=== PATIENT | male | born 1950 | race Caucasian/White ===

== ENCOUNTER → 2018-07-01 | Outpatient (CLI) | payer BC, OTHER | LOC: FIMAGING 07:22 | PROVIDERS: ATTEND Orthopaedic Surgery | DX: Z01.818 Encounter for other preprocedural examination (principal); M16.11 Unilateral primary osteoarthritis, right hip ==

== ENCOUNTER 2018-07-20 10:49 | Inpatient (IN) | payer BC, OTHER ==
--- NOTE | 2018-07-20 06:38 | PDHPUP ---
History & Physical Update H&P update statement: This history and physical update is based on an assessment of the patient which was completed after admission or registration (within 24 hours), but prior to the surgery/procedure. H&P update: no change in patient's condition since H&P completed
--- NOTE | 2018-07-20 06:38 | PDIAF ---
- Diagnosis Diagnosis: right hip djd Code Status: Full Code - Medication Management Discharge Medications: Medications to Continue on Transfer Aspirin [Aspirin 81mg (*)] 81 mg PO DAILY 06/26/18 [Last Taken Unknown] Cholecalciferol Vit D3 [Vitamin D3 2000 units tab (OTC)] 2,000 units PO DAILY [Last Taken Unknown] Herbals/Supplements -Info Only 1 ea PO DAILY 06/26/18 [Last Taken Unknown] Multivitamins [Multivitamin (*)] 1 each PO DAILY 06/26/18 [Last Taken Unknown] Olmesartan/Hydrochlorothiazide [Benicar Hct 40-12.5 mg Tablet] 1 each PO DAILY 06/26/18 [Last Taken Unknown] [place]-3 Fatty Acids [Fish Oil 1000 mg (*)] 2,000 mg PO BID 06/26/18 [Last Taken Unknown] Sertraline HCl [Zoloft 100mg (*)] 100 mg PO DAILY 06/26/18 [Last Taken Unknown] clonazePAM [Klonopin (*)] 0.5 mg PO HS 06/26/18 [Last Taken Unknown] Discharge Medications: Refer to the Discharge Home Medication list for PRN reason. - Orders Services needed: Home Care, Physical Therapy Home Care Face to Face: I certify that this patient was under my care and that I had the required [id number] encounter meeting the encounter requirements on the discharge day. My findings support the fact that the patient is homebound as defined in Home Care Face to Face Continued: CMS Chapter 7 Medicare Benefits Manual 30.1.1 , The condition of the patient is such that there exists a normal inability to leave home and consequently, leaving home would require a considerable and taxing effort. Diet Recommendation: no restrictions on diet Diet Texture: Regular Texture Diet Additional Instructions: TOTAL JOINT ARTHROPLASTY DISCHARGE INSTRUCTIONS 1. Your surgeon follows the [facility] protocol for reducing your risk of DVT (blood clots) following surgery. Medication will be ordered to prevent blood clots. A sudden increase in calf pain and/or swelling could indicate a blood clot in your leg. If this occurs, please call your surgeon or his/her assistant operations manager. An ultrasound of the leg may be necessary to diagnose a blood clot. If you have conditions that make you a higher risk for blood clots, your surgeon may use more aggressive ways to prevent them. Notify your surgeon if you think you are a high risk for blood clots. 2. Wear your white surgical stockings (SUNNY hose) for 2 weeks. This decreases your swelling and may help prevent blood clots. It is ok to remove SUNNY hose at night time to give your legs a break. 3. Swelling and bruising in the surgical leg is common. If you feel that it is excessive, please notify your surgeon. 4. Elevate your surgical leg with the ankle above the hip several times every day. Please keep the leg straight when you elevate by putting pillows under your foot. Do not put pillows under your knee. This will make being able to fully straighten more difficult. This is uncomfortable, but try to do it as much as possible. 5. For total knee replacements use compressive wrap on your knee for 3-5 days after surgery, then you can discontinue it. 6. Use a walker or crutches for 1-2 weeks. Progress your weight-bearing as tolerated. You may start to use a cane when you feel stable and safe. 7. You will receive physical therapy instructions in the hospital. Continue those exercises at home. There are additional exercises in the total joint booklet you were given before surgery. Outpatient physical therapy will begin 7- 10 days after surgery. Please schedule this in advance. 8. Use ice on your knee at least 3-5 times every day for 30 minutes. This helps reduce pain and swelling. Also use it at night before falling asleep. 9. Leave your surgical dressing in place for 2 weeks. Your dressing is water resistant, but not waterproof. Cover it with Saran Wrap or Dfbid-n-Ftjo before showering. You may shower as soon as you feel safe entering a shower. If you notice bleeding from your incision 2 or 3 days after surgery, please notify your surgeon. 10. Due to narcotics, decreased activity and altered diet, most patients experience constipation after surgery. Use [id number]-[id number] stool softeners while you are on narcotics. 11. You may drive a car when you are comfortable bearing weight, have good muscular control of your leg and are off narcotics. This usually occurs 2-4 weeks after surgery, depending on which leg was operated on. 12. If there are questions not addressed here, please refer the [facility] book given for more information. If you still have questions, please contact your surgeon s office. 13. If you have a life-threatening emergency, please call 911 and go to the emergency room immediately. For non-life threatening emergencies, please call your physicians office for advice before going to the emergency room. - Follow Up Care Current Providers and Referrals: Joel Crum [Primary Care Provider] - Josué Frausto MD [Medical Doctor] -
[~2018-07-20 10:49] MED LIST: ROPIVACAINE 0.2% 80 MG, EPINEPHrine 0.2 MG, KETOROLAC TROMETHAMINE 30 MG, morphINE 10 M... IU ONE; TRANEXAMIC ACID 1,000 MG in NS 100 ML IV ONE; TRANEXAMIC ACID 2,000 MG in NS 100 ML IV ONE
[2018-07-20] MEDS ORDERED: ceFAZolin 2 GM/DEXTROSE 100 ML IV ONE (11:00)
[2018-07-20] MEDS ORDERED: LIDOCAINE 1% 2 ML INJ ID PRN (11:00)
[2018-07-20] MEDS ORDERED: FAMOTIDINE 20 MG TAB PO ONE (11:00)
[2018-07-20] MEDS ORDERED: LR 1,000 ML IV ONE (11:00)
[2018-07-20] MEDS ORDERED: ACETAMINOPHEN 325 MG TAB PO ONE (11:00)
[2018-07-20] MEDS ORDERED: PROPOFOL/EMULSION 500 MG/50 ML BOTTLE IV ONE ×2 (11:18→13:49)
[2018-07-20] MEDS ORDERED: fentaNYL 100 MCG/2 ML INJ ONE (11:18)
[2018-07-20] MEDS ORDERED: DEXAMETHASONE 4 MG/ML VIAL ONE (11:18)
[2018-07-20] MEDS ORDERED: PHENYLEPHRINE HCL 100 MCG/ML SYR ONE (11:18)
[2018-07-20] MEDS ORDERED: LIDOCAINE 2% 100 MG/5 ML SYR ONE (11:18)
[2018-07-20] MEDS ORDERED: ONDANSETRON 4 MG/2 ML VIAL ONE (11:18)
[2018-07-20] MEDS ORDERED: MIDAZOLAM 2 MG/2 ML VIAL ONE (11:18)
[2018-07-20] MEDS ORDERED: ceFAZolin 1 GM/5 ML SYR ONE ×2 (12:01→13:23)
[2018-07-20] MEDS ORDERED: BUPIVACAINE/DEXTROSE 7.5MG/ML 2 ML SPINAL AMP SP ONE (12:59)
--- NOTE | 2018-07-20 13:42 | PDANEPAE ---
ANE Past Medical History - Cardiovascular History Hx Hypertension: Yes Hx Arrhythmias: No Hx Chest Pain: No Hx Coronary Artery / Peripheral Vascular Disease: No Hx CHF / Valvular Disease: No Hx Palpitations: No Cardiovascular History Comment: pcp monitors bp medications - Pulmonary History Hx COPD: No Hx Asthma/Reactive Airway Disease: No Hx Recent Upper Respiratory Infection: No Hx Oxygen in Use at Home: No Hx Sleep Apnea: No Sleep Apnea Screening Result - Last Documented: Positive Pulmonary History Comment: giselle triggers. seasonal allergies - Neurologic History Hx Cerebrovascular Accident: No Hx Seizures: No Hx Dementia: No - Endocrine History Hx Diabetes: No Endocrine History Comment: hx of partial thyroidectomy d/t nodules started as full thyroidectomy. 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 lower partial plate - Chronic Pain History Chronic Pain: Yes (bilateral hips, lower back) - Surgical History Prior Surgeries: bilateral knee scopes. bilateral shoulder scopes. appy. partial thyroidectomy ANE Review of Systems Review of Systems: - Exercise capacity METS (RN): 4 METS ANE Patient History - Allergies Allergies/Adverse Reactions: lisinopril Allergy (Verified 07/01/18 12:41) coughs head off - Home Medications Home Medications: Aspirin [Aspirin 81mg (*)] 81 mg PO DAILY 06/26/18 [Last Taken 07/13/18] Cholecalciferol Vit D3 [Vitamin D3 2000 units tab (OTC)] 2,000 units PO DAILY [Last Taken 07/13/18] Herbals/Supplements -Info Only 1 ea PO DAILY 06/26/18 [Last Taken 07/13/18] Multivitamins [Multivitamin (*)] 1 each PO DAILY 06/26/18 [Last Taken 07/13/18] Olmesartan/Hydrochlorothiazide [Benicar Hct 40-12.5 mg Tablet] 1 each PO DAILY 06/26/18 [Last Taken 07/13/18] [place]-3 Fatty Acids [Fish Oil 1000 mg (*)] 2,000 mg PO BID 06/26/18 [Last Taken 07/13/18] Sertraline HCl [Zoloft 100mg (*)] 100 mg PO DAILY 06/26/18 [Last Taken 07/20/18] clonazePAM [Klonopin (*)] 0.5 mg PO HS 06/26/18 [Last Taken 07/13/18] - NPO status NPO Since - Liquids (Date): 07/20/18 NPO Since - Liquids (Time): 08:00 NPO Since - Solids (Date): 07/19/18 NPO Since - Solids (Time): 22:00 - Smoking Hx Smoking Status: Former smoker - Family Anes Hx Family Hx Anesthesia Complications: none ANE Labs/Vital Signs - Vital Signs Blood Pressure: 148/99 Heart Rate: 79 Respiratory Rate: 18 O2 Sat (%): 96 Height: 180.34 cm Weight: 102.058 kg ANE Physical Exam - Airway Neck exam: FROM Mallampati Score: Class 1 Mouth exam: normal dental/mouth exam - Pulmonary Pulmonary: no respiratory distress - Cardiovascular Cardiovascular: regular rate and rhythym, systolic murmur (I/IV and pt has had it for a long time) - ASA Status ASA Status: III ANE Anesthesia Plan Anesthesia Plan: MAC, spinal
[2018-07-20] MEDS ORDERED: NALOXONE HCL 0.4 MG/ML INJ IVP PRN (13:43)
[2018-07-20] MEDS ORDERED: LABETALOL HCL 5 MG/ML 20 ML MDV IVP PRN (13:43)
[2018-07-20] MEDS ORDERED: NS 500 ML IV PRN (13:43)
[2018-07-20] MEDS ORDERED: fentaNYL 100 MCG/2 ML INJ IVP PRN (13:43)
[2018-07-20] MEDS ORDERED: HYDROCODONE/APAP 5/325 TAB PO PRN (13:43)
[2018-07-20] MEDS ORDERED: HYDROmorphONE/DILAUDID 2 MG/ML INJ IVP PRN (13:43)
[2018-07-20] MEDS ORDERED: MEPERIDINE 25 MG/0.5 ML AMP IVP PRN (13:43)
[2018-07-20] MEDS ORDERED: PROMETHAZINE HCL 25 MG/ML INJ IVP PRN ×2 (13:43→15:05)
[2018-07-20] MEDS ORDERED: DIAZEPAM 5 MG/ML 1 ML SYR IVP PRN (13:43)
[2018-07-20] MEDS ORDERED: ALBUTEROL 3 ML DEYVIAL IH PRN (13:43)
[2018-07-20] MEDS ORDERED: ONDANSETRON DISINTEGRATING 4 MG TAB PO PRN (15:05)
[2018-07-20] MEDS ORDERED: PROMETHAZINE HCL 25 MG SUPPR PR PRN (15:05)
[2018-07-20] MEDS ORDERED: LACTULOSE 20 GM/30 ML UDCUP PO PRN (15:05)
[2018-07-20] MEDS ORDERED: TEMAZEPAM 15 MG CAP PO PRN (15:05)
[2018-07-20] MEDS ORDERED: diphenhydrAMINE 25 MG CAP PO PRN (15:05)
[2018-07-20] MEDS ORDERED: POLYETHYLENE GLYCOL 3350 17 GM PKT PO PRN (15:05)
[2018-07-20] MEDS ORDERED: BISACODYL 10 MG SUPP PR PRN (15:05)
[2018-07-20] MEDS ORDERED: DIPHENOXYLATE/ATROPINE LOMOTIL 1 TAB PO PRN (15:05)
[2018-07-20] MEDS ORDERED: ONDANSETRON 4 MG/2 ML VIAL IVP PRN (15:05)
[2018-07-20] MEDS ORDERED: MAGNESIUM HYDROXIDE 30 ML UDCUP PO PRN (15:05)
[2018-07-20] MEDS ORDERED: METOCLOPRAMIDE 10 MG/2 ML VIAL IVP PRN (15:05)
[2018-07-20] MEDS ORDERED: CYCLOBENZAPRINE 10 MG TAB PO PRN (15:05)
--- NOTE | 2018-07-20 15:06 | POSTOPPROG ---
Post Op Note Date of Operation: 07/20/18 Surgeon: Josué Frausto Electoral Officer: lincoln Anesthesiologist: anastasiya Anesthesia: Spinal Pre-op Diagnosis: right hip djd Post-op Diagnosis: same Indication: same Procedure: right cm Inf/Abcess present in the surg proc area at time of surgery?: No Depth: Deep Incisional (Fascial) EBL: 100-500 Drains: Hemovac
--- NOTE | 2018-07-20 16:14 | PDMN ---
Medical Necessity Medical necessity: [facility] S560 hip arthropalsty INPT only sgy: CPT 25534
[2018-07-20] MEDS: ACETAMINOPHEN 325 MG TAB PO SCH ×2 (17:29→23:46)
[2018-07-20] MEDS: LR 1,000 ML IV SCH (17:30)
--- NOTE | 2018-07-20 19:28 | GOP ---
DATE OF OPERATION: 07/20/2018 SURGEON: Josué Frausto MD BOX TOE CUTTER: Matt Livingston, SEMICONDUCTOR WAFER INSPECTOR, [facility], who was medical necessity for the entirety of the case. PREOPERATIVE DIAGNOSIS: Right hip degenerative joint disease. POSTOPERATIVE DIAGNOSIS: Right hip degenerative joint disease. PROCEDURE PERFORMED: Right total hip arthroplasty. FINDINGS: SPECIMENS: To Pathology, the femoral head. INDICATIONS: This is a 67-year-old gentleman with end-stage arthritis to his right hip. Clinical an d radiographic features are consistent with this. He has failed conservative measures. I have recom mended operative intervention. He understood this, wished to proceed. Written consent was signed an d placed in patient's chart. DESCRIPTION OF PROCEDURE: The patient was identified in the preanesthesia area. The right hip clear ly demarcated as the operative site with indelible marker. He was given 2 g of Ancef intravenously e n route to the operative suite. In the OR spinal anesthetic was placed. He was positioned in the nuñez pine position and sedated. Pelvis and both lower extremities were sterilely prepped and draped in us ual fashion. Appropriate time-out procedure was carried out. Attention was first turned to the left hemipelvis. A 2 cm incision was made over the iliac crest. 3 pins were then placed. The pelvic re ference array affixed. An anterior approach was made to the right hip, carried sharply through the s kin and subcutaneous tissue, directly to the fascia. This was elevated off the tensor fascia oleksandr mu scle which was retracted laterally. The underlying vascular structures were identified and ligated, cauterized, transected. Retractors were placed in an extracapsular position. T capsulotomy was made and retractors were placed into an intracapsular position. An acetabular checkpoint was placed. A b celestino wedge was withdrawn from the neck followed by removal of the femoral head. The acetabulum and so ft tissues were sharply excised. The bony landmarks entered into the computer in standard fashion. Using the BuzzStreamOplasty robot, a resection was made for the 58 mm reamer to the appropriate depth with a n opening angle of 40 degrees and anteversion of 20 degrees. A 58 mm Tri titanium 2 shell was then i mpacted, confirmed to be fully seated. A 0-degree X3 liner was then placed and confirmed to be fully seated. Attention was then turned to the femur which was delivered through the use of soft tissue r etraction and extension of the table in a figure 4 type position. The proximal canal was opened and serial broaching carried out to a size 7 stem. Trial reduction with a size 7, 127 degree neck angle hip stem was undertaken and a 0 mm neck length was selected. This restored appropriate leg lengths. The hip was stable to full extension, external rotation, 90 degrees without subluxation. These were selected as the final implants. The trial components were withdrawn. The final size 7 stem impacte d and a 36 mm +0 mm neck length Biolox head was then placed across the cleansed trunnion. Hip was re duced after irrigation and stability profile and leg lengths were equal. The wound was copiously irr igated with pulsatile lavage solution. A 10-Thai drain placed, the tissue injected with a joint co cktail of ropivacaine, morphine, Toradol, and epinephrine. Subcutaneous tissue closed using 0 Vicryl , 2-0 Monocryl, and a zip line. Suture closure of the skin was placed with a pressure dressing overl arpan these incision sites. Sterile bandage was applied. The patient was awakened, extubated, taken to recovery room in good stable condition. TOTAL TOURNIQUET TIME: None. COMPLICATIONS: None. IMPLANTS: Vangie Tritanium 2 acetabular shell, size 58, Trident X3 0 degree polyethylene insert, 36 mm Biolox Delta ceramic head, 36 mm +0 mm neck length, Accolade II 127-degree neck angle hip stem, s ize 7. DISPOSITION: To the recovery room, then the floor. /[id number]/MODL
[2018-07-20] MEDS: ASPIRIN 325 MG TAB PO SCH (20:23)
[2018-07-20] MEDS: FAMOTIDINE 20 MG TAB PO SCH (20:24)
[2018-07-20] MEDS: ceFAZolin 2 GM/DEXTROSE 100 ML IV SCH (20:24)
[2018-07-20] MEDS: oxyCODONE IR 5 MG TAB PO PRN ×2 (20:25→23:45)
[2018-07-20] MEDS: SENNOSIDES/DOCUSATE SODIUM TAB PO SCH (20:25)
[2018-07-20] MEDS: TRANEXAMIC ACID 650 MG TAB PO SCH (20:25)
[2018-07-20] MEDS ORDERED: clonazePAM 0.5 MG TAB PO SCH (21:00)
[2018-07-21] MEDS: LR 1,000 ML IV SCH (01:02)
[2018-07-21] MEDS ORDERED: DIAZEPAM 5 MG TAB PO ONE (01:30)
[2018-07-21] MEDS: ceFAZolin 2 GM/DEXTROSE 100 ML IV SCH (05:29)
[2018-07-21] MEDS: ACETAMINOPHEN 325 MG TAB PO SCH ×2 (05:29→12:27)
[2018-07-21] MEDS: TRANEXAMIC ACID 650 MG TAB PO SCH ×2 (05:29→12:27)
[2018-07-21] MEDS: oxyCODONE IR 5 MG TAB PO PRN (05:30)
--- NOTE | 2018-07-21 07:29 | PDIAF ---
- Diagnosis Diagnosis: right hip djd Code Status: Full Code - Medication Management Discharge Medications: Medications to Continue on Transfer Cholecalciferol Vit D3 [Vitamin D3 2000 units tab (OTC)] 2,000 units PO DAILY [Last Taken 07/13/18] Herbals/Supplements -Info Only 1 ea PO DAILY 06/26/18 [Last Taken 07/13/18] Multivitamins [Multivitamin (*)] 1 each PO DAILY 06/26/18 [Last Taken 07/13/18] Olmesartan/Hydrochlorothiazide [Benicar Hct 40-12.5 mg Tablet] 1 each PO DAILY 06/26/18 [Last Taken 07/13/18] [place]-3 Fatty Acids [Fish Oil 1000 mg (*)] 2,000 mg PO BID 06/26/18 [Last Taken 07/13/18] Sertraline HCl [Zoloft 100mg (*)] 100 mg PO DAILY 06/26/18 [Last Taken 07/20/18] clonazePAM [Klonopin (*)] 0.5 mg PO HS 06/26/18 [Last Taken 07/13/18] Aspirin [Aspirin 325 mg (*)] 325 mg PO DAILY tab 07/21/18 [Last Taken Unknown] Cyclobenzaprine [Flexeril 10 MG (*)] 10 mg PO Q8HRS PRN #20 tab 07/21/18 [Last Taken Unknown] oxyCODONE IR [Oxycodone Ir (*)] 5 - 10 mg PO Q3HRS PRN #60 tab 07/21/18 [Last Taken Unknown] Discharge Medications: Refer to the Discharge Home Medication list for PRN reason. - Orders Services needed: Home Care, Physical Therapy Home Care Face to Face: I certify that this patient was under my care and that I had the required [id number] encounter meeting the encounter requirements on the discharge day. My findings support the fact that the patient is homebound as defined in Home Care Face to Face Continued: CMS Chapter 7 Medicare Benefits Manual 30.1.1 , The condition of the patient is such that there exists a normal inability to leave home and consequently, leaving home would require a considerable and taxing effort. Diet Recommendation: no restrictions on diet Diet Texture: Regular Texture Diet Additional Instructions: TOTAL JOINT ARTHROPLASTY DISCHARGE INSTRUCTIONS 1. Your surgeon follows the [facility] protocol for reducing your risk of DVT (blood clots) following surgery. Medication will be ordered to prevent blood clots. A sudden increase in calf pain and/or swelling could indicate a blood clot in your leg. If this occurs, please call your surgeon or his/her credit control assistant. An ultrasound of the leg may be necessary to diagnose a blood clot. If you have conditions that make you a higher risk for blood clots, your surgeon may use more aggressive ways to prevent them. Notify your surgeon if you think you are a high risk for blood clots. 2. Wear your white surgical stockings (SUNNY hose) for 2 weeks. This decreases your swelling and may help prevent blood clots. It is ok to remove SUNNY hose at night time to give your legs a break. 3. Swelling and bruising in the surgical leg is common. If you feel that it is excessive, please notify your surgeon. 4. Elevate your surgical leg with the ankle above the hip several times every day. Please keep the leg straight when you elevate by putting pillows under your foot. Do not put pillows under your knee. This will make being able to fully straighten more difficult. This is uncomfortable, but try to do it as much as possible. 5. For total knee replacements use compressive wrap on your knee for 3-5 days after surgery, then you can discontinue it. 6. Use a walker or crutches for 1-2 weeks. Progress your weight-bearing as tolerated. You may start to use a cane when you feel stable and safe. 7. You will receive physical therapy instructions in the hospital. Continue those exercises at home. There are additional exercises in the total joint booklet you were given before surgery. Outpatient physical therapy will begin 7- 10 days after surgery. Please schedule this in advance. 8. Use ice on your knee at least 3-5 times every day for 30 minutes. This helps reduce pain and swelling. Also use it at night before falling asleep. 9. Leave your surgical dressing in place for 2 weeks. Your dressing is water resistant, but not waterproof. Cover it with Saran Wrap or Utows-r-Yptx before showering. You may shower as soon as you feel safe entering a shower. If you notice bleeding from your incision 2 or 3 days after surgery, please notify your surgeon. 10. Due to narcotics, decreased activity and altered diet, most patients experience constipation after surgery. Use tuhw-gnm-ndsetqg stool softeners while you are on narcotics. 11. You may drive a car when you are comfortable bearing weight, have good muscular control of your leg and are off narcotics. This usually occurs 2-4 weeks after surgery, depending on which leg was operated on. 12. If there are questions not addressed here, please refer the [facility] book given for more information. If you still have questions, please contact your surgeon s office. 13. If you have a life-threatening emergency, please call 911 and go to the emergency room immediately. For non-life threatening emergencies, please call your physicians office for advice before going to the emergency room. - Follow Up Care Current Providers and Referrals: Joel Crum [Primary Care Provider] - Josué Frausto MD [Medical Doctor] -
--- NOTE | 2018-07-21 07:31 | SOAPPROG ---
SOAP Progress Note Assessment/Plan: Assessment: s/p cm Plan:muscle spasm last night, now improved stable for d/c dvt precatuions reviewed 07/21/18 07:29 Subjective: spasm last pm, now improved no cp or sob evelyne po Objective: Vital Signs Temp Pulse Resp BP Pulse Ox 36.8 C 76 16 116/77 97 07/21/18 04:00 07/21/18 04:00 07/21/18 04:00 07/21/18 04:00 07/21/18 04:00 Laboratory Results 07/21/18 04:48 07/20/18 07/21/18 07/22/18 05:59 05:59 05:59 Intake Total 3290 Output Total 675 Balance 2615 dressing intact intact pdf,ehl toes warm and pink nani neg homans nani xrays stable anatomic alignement no fx or lucency ICD10 Worksheet Patient Problems: Problems Problem Status Onset Arthritis, hip Acute - ICD10 Problem Qualifiers (1) Arthritis, hip
--- NOTE | 2018-07-21 07:45 | GDS ---
ADMISSION DIAGNOSIS: Right hip degenerative joint disease. DISCHARGE DIAGNOSIS: Right hip degenerative joint disease. PROCEDURE: Right total hip arthroplasty. HISTORY OF PRESENT ILLNESS: The patient is a 67-year-old gentleman with end-stage arthritis to his r ight hip. Clinical features are consistent with this. He presents for elective right total hip arth roplasty. HOSPITAL COURSE: Patient was admitted to the hospital floor overnight after uncomplicated total hip arthroplasty. He did have an episode of spasm and 10 out 10 pain which resolved quickly with Valium administration. Otherwise, he had no postoperative complications. At the time of discharge, he is t olerating an oral diet. Pain is well controlled on oral medicines. He is voiding without difficulty . Dressing is clean, dry, and intact. He has been cleared by therapy for discharge. DISCHARGE ACTIVITY: Weightbearing as tolerated. Anterior hip precautions. Daily dressing changes w ith Mepilex if it becomes saturated, otherwise remain in place. No soaking or immersion. FOLLOWUP PRECAUTIONS: Seek attention for increasing redness, swelling, drainage, discharge, or other focal complaints. DISCHARGE MEDICATIONS: Oxycodone 5 mg 1-2 every 4 hours p.r.n. pain, Flexeril 10 mg p.o. q.8 hours p .r.n. spasm, aspirin 325 mg p.o. daily for 6 weeks. FOLLOWUP: At 2 weeks. /[id number]/MODL
[2018-07-21] MEDS: ASPIRIN 325 MG TAB PO SCH (08:46)
[2018-07-21] MEDS: FAMOTIDINE 20 MG TAB PO SCH (08:46)
[2018-07-21] MEDS: SENNOSIDES/DOCUSATE SODIUM TAB PO SCH (08:46)
[2018-07-21] MEDS ORDERED: HYDROCHLOROTHIAZIDE 12.5 MG CAP PO SCH (09:00)
[2018-07-21] MEDS ORDERED: SERTRALINE HCL 100 MG TAB PO SCH (09:00)
[2018-07-21] MEDS ORDERED: OLMESARTAN MEDOXOMIL 20 MG TAB PO SCH (09:00)
--- NOTE | 2018-07-21 10:50 | ASMTLACE ---
CON Length of stay for Answers: 2 days current admission Acuity / Level of Answers: Yes Care: Did the patient have an inpatient admission? Comorbidities - select Answers: Mild liver or renal all that apply disease Opioid dependence / Chronic pain Other Notes: HTN # of Emergency department Answers: 0 visits in the last 6 months Social determinants Answers: Mental health diagnosis (anxiety, depression, pers onality disorders, etc.) Score: 15 Date Signed: 07/21/2018 10:49 AM Electronically Signed By:OMAR Horn
--- NOTE | 2018-07-21 10:53 | ASMTCMCOM ---
CM Note CM Note Notes: Pt s/p OA of hip. Medically stable for d/c with [facility] PT. Address/phone verified. Orders to be obtained via [employer]. Date Signed: 07/21/2018 10:52 AM Electronically Signed By:OMAR Horn
[2018-07-21 11:36] VITALS: BP 117/65
--- NOTE | 2018-07-21 13:46 | ASDISCHSUM ---
Discharge Information Plan Status:Home with Home Health Medically Cleared to Leave: Discharge Date:07/21/2018 12:52 PM CM D/C Disposition: ADT D/C Disposition:Home Health Service Projected Discharge Date:07/21/2018 11:00 AM Transportation at D/C: Discharge Delay Reason: Follow-Up Date:07/21/2018 11:00 AM Discharge Slot: Final Diagnosis: Placement Information Referral Type:*Home Health Care Services Referral ID:[id number] Provider Name:[facility] Address 1:[address] Address 2: City:[place] Selection Factors: State:[place] Patient Contact Information Contact Name:KRISTAL Relationship: Address:[address] City:[place] Alternate Phone: State/Zip Code:[place] [address] Email: Financial Information Financial Class:BCOP Primary Plan Desc: OUT OF STATE PPO Primary Plan Number:[id number] Secondary Plan Desc:MEDICARE INPATIENT Secondary Plan Number:[id number] Assessment Information LACE LACE Length of stay for Answers: 2 days current admission Acuity / Level of Answers: Yes Care: Did the patient have an inpatient admission? 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 Medically stable for d/c with [facility] PT. Address/phone verified. Orders to be obtained via [employer]. Date Signed: 07/21/2018 10:52 AM Electronically Signed By:OMAR Horn Intervention Information
--- NOTE | 2018-07-21 16:33 | POSTANESTH ---
Post Anesthetic Evaluation Cardiovascular Status: Normal, Stable Respiratory Status: Normal, Stable Level of Consciousness/Mental Status: Can Participate in Eval Pain Control: Adequate, Prn Tx Ordered Nausea/Vomiting Control: Adequate, Prn Tx Ordered Complications Possibly Related to Anesthesia: None Noted (Seen prior to DC from PACU and met all criteria for DC)
== END 2018-07-21 12:52 | disposition home health service (06) | DRG 470 ==
LOC: F3N 10:49
PROVIDERS: ADMIT Orthopaedic Surgery; ATTEND Orthopaedic Surgery
PROC: 0SR904Z Replacement of Right Hip Joint with Ceramic on Polyethylene Synthetic Substitute, Open Approach (ICD-10-PCS; principal; 2018-07-20 12:45)
DX: M16.11 Unilateral primary osteoarthritis, right hip (principal); I10 Essential (primary) hypertension; G47.33 Obstructive sleep apnea (adult) (pediatric)
CPT/HCPCS: 97116-GP; 97161-GP; 97165-GO; G8978-GP-CI; G8979-GP-CI; G8980-GP-CI; G8987-GO-CI; G8988-GO-CI; G8989-GO-CI; J0171; J0690; J1100; J1885; J2001; J2250; J2270; J2370; J2405; J2704; J2795; J3010

== ENCOUNTER → 2018-09-03 | Outpatient (CLI) | payer BC, OTHER | LOC: BMCIMAGING 10:42 | PROVIDERS: ATTEND Physician Assistant | DX: Z47.1 Aftercare following joint replacement surgery (principal); Z96.641 Presence of right artificial hip joint ==

== ENCOUNTER → 2018-10-14 | Outpatient (CLI) | payer BC, OTHER | LOC: BMCIMAGING 07:55 | PROVIDERS: ATTEND Orthopaedic Surgery | DX: M16.11 Unilateral primary osteoarthritis, right hip (principal) ==

== ENCOUNTER → 2019-01-13 | Outpatient (CLI) | payer BC, OTHER | LOC: BMCIMAGING 12:51 | PROVIDERS: ATTEND Orthopaedic Surgery | DX: Z47.1 Aftercare following joint replacement surgery (principal); Z96.641 Presence of right artificial hip joint ==